=== PATIENT | male | born 1970 | race Caucasian/White ===

== ENCOUNTER 2020-04-01 08:09 | Day surgery (SDC) | payer OTHER ==
[2020-04-01] MEDS ORDERED: Propofol 200 MG/20 ML SDV IV ONE (08:10)
[2020-04-01] MEDS ORDERED: Lidocaine 1% PF 2 ML SDV INJECT ONE (08:10)
[2020-04-01] MEDS ORDERED: Sodium Chloride 0.9% 10 ML Syringe FLUSH PRN (08:30)
[2020-04-01] MEDS: Lactated Ringers 1,000 ML IV SCH (08:55)
--- NOTE | 2020-04-01 10:04 | PCM.OPNOTE ---
- General Post-Op/Procedure Note Date of Surgery/Procedure: 04/01/20 Operative Procedure(s): c scope with cold forceps and cold loop biopsy Findings: cecal polyp transverse colon polyp x2 descending colon polyp x2 rectal polyp x2 Pre Op Diagnosis: family hx of colon cancer Post-Op Diagnosis: cecal polyp. transverse colon polyp x2. descending colon polyp x2. rectal polyp x2 Anesthesia Technique: [facility] [place] Primary Surgeon: Aiden Newsome Anesthesia Provider: Hernandez Sousa Pathology: cecal polyp transverse colon polyp x2 descending colon polyp x2 rectal polyp x2 Complications: None Condition: Good Free Text/Narrative:: see dictation
--- NOTE | 2020-04-01 11:49 | OR ---
DATE OF OPERATION: 04/01/2020 SURGEON: Aiden Newsome MD PROCEDURE PERFORMED: Colonoscopy with cold forceps and cold loop biopsy. PREOPERATIVE DIAGNOSIS: Family history of colon cancer. POSTOPERATIVE DIAGNOSES: Polyp of the cecum x1, polyp of the transverse colon x2, polyp of the descending colon x2, and polyp of the rectum x2. INDICATIONS FOR PROCEDURE: This is a 49-year-old white male who presents for his initial screening colonoscopy. He does have a family history of colon cancer. He is currently without complaints. DESCRIPTION OF PROCEDURE: After an excellent IV sedation was administered, digital rectal exam was performed. No marked abnormality was noted. Flexible colonoscope was inserted and advanced through the cecum. The prep was excellent. Following findings were noted: In the cecum, there was a cecal polyp, biopsied with cold biopsy forceps and submitted for permanent. It was roughly 5 mm in size. Transverse colon: Two 5 mm polyps, biopsied with cold biopsy forceps and submitted for permanent. Descending colon: One pedunculated polyp in the proximal area, which was amenable to cold loop snare biopsy, which was done. Then, at the distal colon, there was a patch of adenomatous-appearing tissue, again 5 mm in diameter, biopsied with cold biopsy forceps and sent for permanent. In the rectum, there were 2 hyperplastic-appearing polyps. These were biopsied and submitted as well. The colon was deflated, and the scope was removed. The patient tolerated the procedure well and was taken to Recovery in good condition. Results will be sent by letter. /[id number] /DALEL
== END 2020-04-01 10:45 | disposition home or self-care (01) ==
LOC: FB.SDS 08:09
PROVIDERS: ATTEND Surgery
DX: Z12.11 Encounter for screening for malignant neoplasm of colon (principal); D12.0 Benign neoplasm of cecum; D12.3 Benign neoplasm of transverse colon; D12.4 Benign neoplasm of descending colon; K62.1 Rectal polyp; F41.9 Anxiety disorder, unspecified; K21.9 Gastro-esophageal reflux disease without esophagitis; Z80.0 Family history of malignant neoplasm of digestive organs; Z79.899 Other long term (current) drug therapy
CPT/HCPCS: 00811; 45380; 45385; 88305; J2001; J2704; J7120

== ENCOUNTER 2021-08-11 08:44 | Day surgery (SDC) | payer OTHER ==
[~2021-08-11 08:44] MED LIST: Lactated Ringers 1,000 ML IV SCH; Sodium Chloride 0.9% 10 ML Syringe FLUSH PRN
[2021-08-11] MEDS ORDERED: Propofol 200 MG/20 ML SDV IV ONE (08:45)
[2021-08-11] MEDS ORDERED: Lidocaine 1% PF 2 ML SDV INJECT ONE (08:45)
[2021-08-13 00:12] LABS: ADENOVIRUS F 40/41 Not Detected (Not Detected); ASTROVIRUS Not Detected (Not Detected); C DIFFICILE TOXIN A/B Not Detected (Not Detected); CAMPYLOBACTER Not Detected (Not Detected); CRYPTOSPORIDIUM Not Detected (Not Detected); CYCLOSPORA CAYETANENSIS Not Detected (Not Detected); ENTAMOEBA HISTOLYTICA Not Detected (Not Detected); ENTEROAGGREGATIVE E COLI Not Detected (Not Detected); ENTEROPATHOGENIC E COLI Not Detected (Not Detected); ENTEROTOXIGENIC E COLI Not Detected (Not Detected); GIARDIA LAMBLIA Not Detected (Not Detected); NOROVIRUS GI/GII Not Detected (Not Detected); PLESIOMONAS SHIGELLOIDES Not Detected (Not Detected); ROTAVIRUS A Not Detected (Not Detected); SALMONELLA Not Detected (Not Detected); SAPOVIRUS Not Detected (Not Detected); SHIGA-TOXIN-PRODUCING E COLI Not Detected (Not Detected); SHIGELLA/ENTEROINVASIVE E COLI Not Detected (Not Detected); VIBRIO Not Detected (Not Detected); VIBRIO CHOLERAE Not Detected (Not Detected); YERSINIA ENTEROCOLITICA Not Detected (Not Detected)
== END 2021-08-11 12:49 | disposition home or self-care (01) ==
LOC: FB.SDS 08:44
PROVIDERS: ATTEND Surgery
DX: A04.71 Enterocolitis due to Clostridium difficile, recurrent (principal); I10 Essential (primary) hypertension; E66.9 Obesity, unspecified; F41.9 Anxiety disorder, unspecified; Z86.010 Personal history of colon polyps; Z80.0 Family history of malignant neoplasm of digestive organs; Z79.899 Other long term (current) drug therapy
CPT/HCPCS: 00811-QZ; 0097U; 88305; 89055; J2704; J7120